=== PATIENT | male | born 1995 | race Caucasian/White ===

== ENCOUNTER 2017-11-07 04:58 | Emergency (ER) | payer BC ==
--- NOTE | 2017-11-07 05:00 | EDPHY ---
H & P Time Seen by Provider: 11/07/17 05:11 HPI/ROS: HPI CHIEF COMPLAINT: Nausea and vomiting, and diarrhea HISTORY OF PRESENT ILLNESS: This patient is a 22-year-old male, is otherwise healthy does not take any daily medications he presents emergency room with nausea vomiting and diarrhea. He states this all started suddenly around 1:00 a.m.. He has had approximately 10 episodes of vomiting and 10 episodes of watery diarrhea. He denies any blood. He denies any fever. He does complain of abdominal cramps. Denies any chest pain or shortness of breath. Does know of any other sick contacts. Past Medical History: Denies medical history Past Surgical History: Denies surgical history Social History: Occasional alcohol use, occasional marijuana use, last marijuana use 2 days ago, [employer] student Family History: Noncontributory ROS REVIEW OF SYSTEMS: A comprehensive 10 point review of systems is otherwise negative aside from elements mentioned in the history of present illness. Exam Constitutional appears well nontoxic triage nursing summary reviewed, vital signs reviewed, awake/alert. Eyes normal conjunctivae and sclera, EOMI, PERRLA. HENT normal inspection, atraumatic, moist mucus membranes, no epistaxis, neck supple/ no meningismus, no raccoon eyes. Respiratory clear to auscultation bilaterally, normal breath sounds, no respiratory distress, no wheezing. Cardiovascular rate normal, regular rhythm, no murmur, no edema, distal pulses normal. Gastrointestinal soft, non-tender, no rebound, no guarding, normal bowel sounds, no distension, no pulsatile mass. Genitourinary no CVA tenderness. Musculoskeletal no midline vertebral tenderness, full range of motion, no calf swelling, no tenderness of extremities, no meningismus, good pulses, neurovascularly intact. Skin pink, warm, & dry, no rash, skin atraumatic. Neurologic awake, alert and oriented x 3, AAOx3, moves all 4 extremities equally, motor intact, sensory intact, CN II-XII intact, normal cerebellar, normal vision, normal speech. Psychiatric normal mood/affect. Heme/Lymph/Immune no lymphadenopathy. Differential diagnosis includes but is not limited to and in no particular order : Bowel obstruction, appendicitis, gallbladder disease, diverticulitis, colitis , enteritis, perforated viscus, gastritis, GERD, esophagitis, urinary tract infection, pyelonephritis, kidney stones Medical Decision Making: Plan for this patient he is here with nausea vomiting and diarrhea will plan on IV established with IV fluid bolus 2 L normal saline, IV Zofran for nausea, IV Pepcid for upset stomach, basic blood work and re- evaluate. Re-evaluation: 0518: Patient reports to me that he had a eggs around 6:00 p.m. Last night around 1:00 a.m. Last night he got sick. He has had a sick contact he states roommate was sick with a GI bug earlier in the week. Reports to me that he did not feel that well earlier today. Currently he denies any other sick contacts. Denies any significant localized abdominal pain but has diffuse crampy abdominal pain that comes in waves. CT scan abdomen pelvis with IV contrast performed due to patient's high white count, and abdominal pain. CT scan shows normal appendix this was called to me by Dr. Holguin. Does show small bowel dilated loops with fluid filled loops consistent with an enteritis. 0628: I did re-evaluate the patient this time he is feeling much better he is not vomiting he p.o. Challenge well without any difficulty he would like to go home. I explained he should do a bland diet over the next 48 hr. Return if he has worsening pain, vomiting, fever. Return precautions discussed he understands. Zofran prescription provided. Source: Patient Constitutional: Initial Vital Signs Temperature (C) 36.7 C 11/07/17 05:01 Heart Rate 79 11/07/17 05:01 Respiratory Rate 18 11/07/17 05:01 Blood Pressure 141/81 H 11/07/17 05:01 O2 Sat (%) 98 11/07/17 05:01 O2 Delivery Mode Room Air Allergies/Adverse Reactions: peanut Allergy (Verified 11/07/17 05:04) shellfish derived Allergy (Verified 11/07/17 05:04) tree nut Allergy (Verified 11/07/17 05:04) Home Medications: Medication Instructions Recorded Albuterol [Ventolin Hfa Inhaler] 11/07/17 Fluticasone/Salmeter 100/50Mcg 1 puffs IH BID 11/07/17 [Advair 100/50 (*)] Ondansetron HCl [Zofran] 4 mg PO Q4-6PRN PRN #10 tablet 03/01/18 Medical Decision Making - Data Points Laboratory Results: Laboratory Results 11/07/17 05:15 11/07/17 05:15 11/07/17 11/07/17 05:15 05:15 WBC 23.20 10^3/uL H 10^3/uL (3.80-9.50) RBC 6.19 10^6/uL 10^6/uL (4.40-6.38) Hgb 19.4 g/dL H g/dL (13.7-17.5) Hct 53.3 % H % (40.0-51.0) MCV 86.1 fL fL (81.5-99.8) MCH 31.3 pg pg (27.9-34.1) MCHC 36.4 g/dL g/dL (32.4-36.7) RDW 11.7 % % (11.5-15.2) Plt Count 387 10^3/uL 10^3/uL (150-400) MPV 9.4 fL fL (8.7-11.7) Neut % (Auto) 86.4 % H % (39.3-74.2) Lymph % (Auto) 6.4 % L % (15.0-45.0) [place] % (Auto) 4.4 % L % (4.5-13.0) Eos % (Auto) 1.9 % % (0.6-7.6) Baso % (Auto) 0.4 % % (0.3-1.7) Nucleat RBC Rel Count 0.0 % % (0.0-0.2) Absolute Neuts (auto) 20.04 10^3/uL H 10^3/uL (1.70-6.50) Absolute Lymphs (auto) 1.49 10^3/uL 10^3/uL (1.00-3.00) Absolute Monos (auto) 1.02 10^3/uL H 10^3/uL (0.30-0.80) Absolute Eos (auto) 0.44 10^3/uL H 10^3/uL (0.03-0.40) Absolute Basos (auto) 0.09 10^3/uL 10^3/uL (0.02-0.10) Absolute Nucleated RBC 0.00 10^3/uL 10^3/uL (0-0.01) Immature Gran % 0.5 % % (0.0-1.1) Immature Gran # 0.12 10^3/uL H 10^3/uL (0.00-0.10) Sodium 141 mEq/L mEq/L (135-145) Potassium 4.8 mEq/L mEq/L (3.5-5.2) Chloride 105 mEq/L mEq/L (97-110) Carbon Dioxide 18 mEq/l L mEq/l (22-31) Anion Gap 18 mEq/L H mEq/L (8-16) BUN 16 mg/dL mg/dL (7-23) Creatinine 0.9 mg/dL mg/dL (0.7-1.3) Estimated GFR > 60 Glucose 155 mg/dL H mg/dL (70-100) Calcium 11.0 mg/dL H mg/dL (8.5-10.4) Phosphorus 2.4 mg/dL L mg/dL (2.5-4.5) Total Bilirubin 1.0 mg/dL mg/dL (0.1-1.4) Conjugated Bilirubin 0.3 mg/dL mg/dL (0.0-0.5) Unconjugated Bilirubin 0.7 mg/dL mg/dL (0.0-1.1) AST 32 IU/L IU/L (17-59) ALT 51 IU/L IU/L (21-72) Alkaline Phosphatase 88 IU/L IU/L (38-126) Total Protein 8.3 g/dL H g/dL (6.3-8.2) Albumin 5.1 g/dL H g/dL (3.5-5.0) Lipase 58 IU/L IU/L (23-300) Medications Given: Discontinued Medications Famotidine (Pepcid) 20 mg IVP EDNOW ONE Stop: 11/07/17 05:10 Last Admin: 11/07/17 05:22 Dose: 20 mg Sodium Chloride (Ns) 1,000 mls @ 0 mls/hr IV EDNOW ONE; Wide Open PRN Reason: Protocol Stop: 11/07/17 05:02 Last Admin: 11/07/17 05:22 Dose: 1,000 mls Sodium Chloride (Ns) 1,000 mls @ 0 mls/hr IV ONCE ONE PRN Reason: Wide Open Stop: 11/07/17 05:10 Last Admin: 11/07/17 05:22 Dose: 1,000 mls Ondansetron HCl (Zofran) 4 mg IVP EDNOW ONE Stop: 11/07/17 05:02 Last Admin: 11/07/17 05:23 Dose: 4 mg Departure - Departure Disposition: Home, Routine, Self-Care Clinical Impression: Vomiting Qualifiers: Vomiting type: unspecified Vomiting Intractability: non-intractable Nausea presence: with nausea Qualified Code(s): R11.2 - Nausea with vomiting, unspecified Condition: Good Instructions: Acute Nausea and Vomiting (ED), Acute Diarrhea (ED) Additional Instructions: 1. Castro diet over the next 48 hr no spicy fatty greasy foods. 2. Zofran if your nauseous. 3. Return emergency room if develops worsening abdominal pain fever or continue have bad vomiting. Referrals: Nohemi Larson MD [Primary Care Provider] - As per Instructions Prescriptions: Ondansetron HCl [Zofran] 4 mg PO Q4-6PRN PRN #10 tablet PRN Reason: Nausea/Vomiting, Use 1st
[2017-11-07] MEDS ORDERED: NS 1,000 ML IV ONE ×2 (05:01→05:09)
[2017-11-07] MEDS ORDERED: ONDANSETRON 4 MG/2 ML VIAL IVP ONE (05:01)
[2017-11-07 05:03] VITALS: O2SAT 98
[2017-11-07] MEDS ORDERED: FAMOTIDINE 20 MG/2 ML SDV IVP ONE (05:09)
[2017-11-07 05:31] LABS: PLATELET COUNT 387 10^3/uL (150-400)
[2017-11-07] MEDS ORDERED: IOPAMIDOL (ISOVUE-300) 100 ML BTL ONE (05:57)
[2017-11-07 06:43] VITALS: BP 133/79; PULSE 82; RESP 16; TEMP 97.9
== END 2017-11-07 06:44 | disposition home or self-care (01) ==
DX: R11.2 Nausea with vomiting, unspecified (principal); E86.9 Volume depletion, unspecified; Z91.010 Allergy to peanuts
CPT/HCPCS: 96374; J2405; Q9967